=== PATIENT | female | born 1990 | race Caucasian/White ===

== ENCOUNTER 2019-04-24 22:03 | Emergency (ER) | payer OTHER ==
[2019-04-24] MEDS: ONDANSETRON 4 MG INJ IV (23:54)
[2019-04-24] MEDS: KETOROLAC 30 MG INJ IV (23:54)
[2019-04-24] MEDS: PROCHLORPERAZINE 10 MG INJ IV (23:54)
[2019-04-25] MEDS: SOD CHLORIDE 0.9% 1,000 ML IV
== END 2019-04-25 01:31 | disposition home or self-care (01) ==
LOC: FTE 04-25 01:31
DX: R51 Headache (principal); R11.0 Nausea
CPT/HCPCS: 81025; 87880; 96374; 96375; 99284-25